=== PATIENT | male | born 1955 | race Caucasian/White ===

== ENCOUNTER → 2020-07-08 | Outpatient (CLI) | payer MEDICARE ==
[~2020-07-08] MED LIST: IBU600 MG PO
== END ==
LOC: KOH-I 09:42
DX: F17.210 Nicotine dependence, cigarettes, uncomplicated (principal)
CPT/HCPCS: 71271

== ENCOUNTER → 2020-08-17 | Outpatient (CLI) | payer MEDICARE, OTHER ==
[2020-08-18 09:15] LABS: HBSAG SCREEN Negative (Negative); HEP B CORE AB, TOT Negative (Negative)
[2020-08-18 12:14] LABS: HCV AB <0.1 (0.0-0.9)
[2020-08-20 00:09] LABS: CCP ANTIBODIES IGG/IGA 5 units (0-19)
[2020-08-20 07:11] LABS: QUANTIFERON MITOGEN VALUE >10.00 IU/mL (.); QUANTIFERON TB1 AG VALUE 0.04 IU/mL (.); QUANTIFERON TB2 AG VALUE 0.08 IU/mL (.); QUANTIFERON-TB GOLD PLUS Negative (Negative)
== END ==
LOC: LAB 06:57
PROVIDERS: Nurse Practitioner Family
DX: Z11.59 Encounter for screening for other viral diseases (principal); M79.642 Pain in left hand; M79.641 Pain in right hand; M79.672 Pain in left foot; M79.671 Pain in right foot; D89.9 Disorder involving the immune mechanism, unspecified; R76.8 Other specified abnormal immunological findings in serum; M25.842 Other specified joint disorders, left hand; M25.841 Other specified joint disorders, right hand
CPT/HCPCS: 36415; 73130; 73630; 82550; 83520; 85652; 86140; 86200; 86704; 86803; 87340

== ENCOUNTER → 2020-12-28 | Outpatient (CLI) | payer MEDICARE, OTHER | LOC: KOH-I 12-22 09:30 | DX: R74.01 Elevation of levels of liver transaminase levels (principal); K76.89 Other specified diseases of liver; R18.8 Other ascites | CPT/HCPCS: 76705 ==

== ENCOUNTER → 2021-01-07 | Outpatient (CLI) | payer MEDICARE, OTHER | LOC: CT 11:52 | DX: R16.0 Hepatomegaly, not elsewhere classified (principal) | CPT/HCPCS: Q9967 ==

== ENCOUNTER 2021-03-01 15:37 | Inpatient (IN) | payer MEDICARE, OTHER ==
[~2021-03-01] VITALS: Ht 167.6 cm; Wt 91.2 kg
[2021-03-01 18:39] LABS: HEMOGLOBIN 11.4 gm/dl (14.0-17.5); RED BLOOD COUNT 3.86 M/UL (4.20-5.50); WHITE BLOOD COUNT 16.5 K/UL (4.5-11.0)
[2021-03-02 08:32] LABS: RED BLOOD COUNT 3.48 M/UL (4.20-5.50); WHITE BLOOD COUNT 15.2 K/UL (4.5-11.0)
[2021-03-02] MEDS ORDERED: FARXIGA5 MG PO (12:43)
[2021-03-02] MEDS ORDERED: GLUCOTROL5 MG PO (12:44)
[2021-03-02] MEDS ORDERED: FUROSEMIDE20 MG PO (12:44)
[2021-03-02] MEDS ORDERED: LACTULOSE10 GM/151 PO (12:46)
[2021-03-02] MEDS ORDERED: PROTONIX 40 MG40 M1 PO (12:47)
[2021-03-02] MEDS ORDERED: ROXICODONE TAB 55 MG PO (12:47)
[2021-03-02] MEDS ORDERED: GABAPENTIN800 MG PO (12:48)
[2021-03-02] MEDS ORDERED: ONDANSETRON ODT8 MG PO (12:49)
[2021-03-02] MEDS ORDERED: PLAQUENIL 200200 MG PO (12:51)
[2021-03-03 04:30] LABS: HEMOGLOBIN 10.2 gm/dl (14.0-17.5); RED BLOOD COUNT 3.48 M/UL (4.20-5.50); WHITE BLOOD COUNT 16.5 K/UL (4.5-11.0)
[2021-03-03] MEDS ORDERED: KEFLEX CAP 250250 MG PO (10:27)
--- NOTE | 2021-03-03 12:41 | NUR ---
CALLED EMS AND WAITING ON THEM TO PICK HIM UP , CALLED REPORT TO VAL AT [facility] AT THIS TIME HIS FAMILY IS AT BEDSIDE.
== END 2021-03-03 13:20 | DRG 871 ==
LOC: ER1 15:37 → CDU 23:40 → PROG CARE 03-02 12:32
PROVIDERS: Physician Assistant; ADMIT Emergency Medicine
PROC: 3E033XZ Introduction of Vasopressor into Peripheral Vein, Percutaneous Approach (ICD-10-PCS; principal; 2021-03-01)
DX: A41.9 Sepsis, unspecified organism (principal); R65.21 Severe sepsis with septic shock; Z20.822 Contact with and (suspected) exposure to COVID-19; N17.0 Acute kidney failure with tubular necrosis; N30.00 Acute cystitis without hematuria; C18.9 Malignant neoplasm of colon, unspecified; C78.7 Secondary malignant neoplasm of liver and intrahepatic bile duct; C78.6 Secondary malignant neoplasm of retroperitoneum and peritoneum; C79.70 Secondary malignant neoplasm of unspecified adrenal gland; R18.8 Other ascites; E87.2 Acidosis; E87.1 Hypo-osmolality and hyponatremia; E11.9 Type 2 diabetes mellitus without complications; J44.9 Chronic obstructive pulmonary disease, unspecified; F17.210 Nicotine dependence, cigarettes, uncomplicated; M32.9 Systemic lupus erythematosus, unspecified; E80.6 Other disorders of bilirubin metabolism; K75.81 Nonalcoholic steatohepatitis (NASH); K74.60 Unspecified cirrhosis of liver; R74.01 Elevation of levels of liver transaminase levels; Z90.49 Acquired absence of other specified parts of digestive tract; Z79.4 Long term (current) use of insulin; Z87.442 Personal history of urinary calculi
CPT/HCPCS: 36415; 36600; 71045; 80053; 80202; 81001; 82550; 82553; 82803; 82962; 83605; 83690; 83874; 84484; 85025; 85027; 85610; 85730; 87040; 94760; 96365; 96375; 99285; C9113; G0378; J2543; J3370; J7042; J7070; U0002